=== PATIENT | female | born 1945 | race Caucasian/White ===

== ENCOUNTER 2023-06-27 11:19 | Emergency (ER) | payer MEDICARE, MEDICAID, SELFPAY ==
--- NOTE | ~2023-06-27 | XR_ITS ---
EXAMINATION: XR CHEST CLINICAL INFORMATION: Chest pain COMPARISON: None available. TECHNIQUE: 2 views of the chest were obtained. FINDINGS: Question increased left retrocardiac opacity versus artifact due to overlying soft tissues. No interstitial pulmonary edema or pneumothorax. Mild peribronchial thickening is noted. No pleural effusion. No significant abnormality is noted involving the heart, mediastinum, bony thorax or soft tissues. XR/XR chest 2V IMPRESSION: Question of increased left retrocardiac opacity versus artifact due to overlying soft tissues.
--- NOTE | 2023-06-27 11:21 | ECG_ITS ---
Test Reason : cp Blood Pressure : / mmHG Vent. Rate : 063 BPM Atrial Rate : 063 BPM P-R Int : 154 ms QRS Dur : 084 ms QT Int : 428 ms P-R-T Axes : 029 -11 062 degrees QTc Int : 437 ms Normal sinus rhythm with sinus arrhythmia Minimal voltage criteria for LVH, may be normal variant ( R in aVL ) Nonspecific T wave abnormality Abnormal ECG No previous ECGs available Referred By: Generic ED Physician Electronically Signed By:DIMAS COLLIER MD
[2023-06-27 11:57] VITALS: BP 113/34; PULSE 76; RESP 20; TEMP 35.9; O2SAT 100; BMI 38.4
--- NOTE | 2023-06-27 11:57 | ED_ITS ---
HPI - General Adult General Chief complaint: Chest Pain Stated complaint: Chest pain Time Seen by Provider: 06/27/23 18:02 Source: patient, RN notes reviewed and old records reviewed Mode of arrival: ambulatory Limitations: no limitations History of Present Illness HPI narrative: 78 year old female with PMH of fibromyalgia, OA, and PTSD presents for chest pain and pressure. She states the pain started this morning soon after breakfast while shopping and describes it as an elephant sitting on my chest. She states the pain lasted a few hours but has since subsided. She denies shortness of breath, diaphoresis, radiation to the arm, vomiting, or palpitations. She denies any pain or discomfort currently. She is requesting to be discharged home. Patient denies any history of cardiac disease Related Data Allergies Allergy/AdvReac Type Severity Reaction Status Date / Time pencillin Allergy Severe Anaphylaxis Uncoded 06/27/23 11:59 Review of Systems 2 Constitutional: Constitutional: Denies chills, Denies fever(s), Denies headache(s) and Denies lethargy Eyes: Eyes: Denies blurry vision ENT: Denies headache(s) Cardiovascular: Cardiovascular: Reports chest pain, Denies Epigastric Pain, Denies diaphoresis, Denies syncope, Denies leg edema, Denies lightheadedness, Denies radiating jaw, neck or arm pain, Denies palpitations and Denies dyspnea Respiratory: Respiratory: Denies cough and Denies dyspnea Gastrointestinal: Gastrointestinal: Denies abdominal pain, Denies nausea and Denies vomiting Musculoskeletal: Musculoskeletal: Reports arthralgias Integumentary/Breasts: Skin/Breast: Denies rash Neurologic: Denies syncope and Denies headache(s) Endocrine: Endocrine: Denies palpitations [facility] Social History Social History Advance Directives: No Advance Directives Information Provided: No Physical Exam ED Vital Signs: Vital Signs - 24 hr 06/27/23 11:57 06/27/23 19:05 Temperature 96.6 F L 98.2 F Pulse Rate 76 72 Respiratory Rate 20 12 Blood Pressure 113/34 L 137/63 Pulse Oximetry 100 96 Oxygen Delivery Method Room Air Room Air BMI result Body Mass Index 38.4 Const General: cooperative, healthy appearing and no acute distress Orientation/consciousness: patient oriented x3 Limitations: no limitations HENMT Head: Yes normocephalic and Yes atraumatic Eyes Conjunctivae: conjunctivae normal Sclerae: sclerae normal Corneas: corneas normal Pupils: Equal, round and reactive pupils present Chest Chest palpation & inspection: normal palpation of entire chest wall Resp Effort & Inspection: normal respiratory effort Auscultation: clear to auscultation bilaterally Cardio Rate: regular rate Rhythm: regular rhythm Neuro General: patient oriented x3 Cranial nerves: Yes Equal, round and reactive pupils present Extrem General: Yes normal to inspection and No edema Course Course Course Narrative: RME performed by Elham Medina PA-C. Patient is an 78 year old assigned female at presenting to the emergency department with chest pain. Labs and imaging ordered. Patient placed back in the waiting room pending room availability and results. Medications Administered Discontinued Medications Generic Name Dose Route Start Last Admin Trade Name Freq PRN Reason Stop Dose Admin Acetaminophen 975 mg 06/27/23 16:01 06/27/23 16:04 Acetaminophen 325 Mg Tablet PO 06/27/23 16:02 975 mg ONCE ONE Administration Medical Decision Making Medical Decision Making [facility] Narrative: 78-year-old female presents for evaluation of chest pain. She is currently asymptomatic but she had pain for several hours. She reports that her pain improved after ?burping and guarding. ? She reports a history of GERD but denies any history of coronary artery disease. The patient has a heart score of 3 at this time. Troponin was negative repeat troponin over 3 hours later was also negative. The patient's history is most consistent with GI etiology of her chest pain. Patient was encouraged to follow-up with her primary doctor. Patient's chest x-ray was reviewed and showed possible shadow versus artifact. Given that she denies any respiratory symptoms, cough, short of breath cough fevers, I advised her to get a repeat chest x-ray in a few weeks or return if she develops any upper respiratory symptoms. Differential Diagnosis Differential Diagnoses: The differential diagnosis associated with the presentation includes anxiety GERD costochondritis ACS muscle strain Admission/Observation Consideration of admission/observation: Escalation of care including admission/observation considered 78-year-old female presents for evaluation of crushing chest pain, however patient was ruled out for ACS and therefore did not require admission Lab Data [facility] Lab Attestation statement: I reviewed the patient's lab results. No leukocytosis or anemia, normal platelet count. No significant electrolyte abnormalities. The patient's BUN is elevated to 34. Unclear etiology this time. There is no evidence of anemia the patient denies any black or bloody stool. Troponin less than 2.7 x 2 06/27/23 12:56 06/27/23 12:57 Labs: Lab Results 06/27/23 06/27/23 06/27/23 Range/Units 12:56 12:57 16:14 WBC 8.0 (4.8-10.8) X10*3/uL RBC 4.62 (4.20-5.50) X10*6/uL Hgb 14.5 (12.0-16.0) g/dl Hct 44.8 (37.0-47.0) % MCV 97.0 (80.0-98.0) fL MCH 31.4 (27.0-33.0) pg MCHC 32.4 (31.0-35.0) g/dl RDW 13.1 (11.0-16.0) % Plt Count 207 (160-400) X10*3/uL MPV 10.2 (9.4-12.3) fL Immature Gran % (Auto) 0.2 (0.0-0.4) % Neut % (Auto) 76.8 H (45-73) % Lymph % (Auto) 14.7 L (20-40) % [place] % (Auto) 6.6 (2-11) % Eos % (Auto) 1.6 (0-4) % Baso % (Auto) 0.1 (0-2) % Lymph # (Auto) 1.2 (1.2-4.9) X10*3/uL [place] # (Auto) 0.5 (0.1-1.2) X10*3/uL Eos # (Auto) 0.1 (0.0-0.4) X10*3/uL Baso # (Auto) 0.0 (0.0-0.2) X10*3/uL Abs Immat Gran (auto) 0.02 (0.00-0.03) X10*3/uL Absolute Neuts (auto) 6.2 (2.0-8.3) x10*3/uL Absolute Nucleated RBC 0.000 (0.0-0.012) X10*3/uL Nucleated RBC % (auto) 0.0 (0.0-0.2) /100WBC PT 11.3 (11.1-13.3) SEC INR 0.9 (0.9-1.1) APTT 28.8 (26.0-36.4) SEC Sodium 141 (135-145) mmol/L Potassium 4.4 (3.3-5.1) mmol/L Chloride 106 (96-108) mmol/L Carbon Dioxide 26 (22-29) mmol/L Anion Gap 13 (12-20) BUN 34 H (9-16) mg/dL Creatinine 0.72 (0.5-1.4) mg/dL Estim Creat Clear Calc 67.0 Estimated GFR > 60 Random Glucose 112 (60-115) mg/dL Calcium 9.7 (8.4-10.2) mg/dL Magnesium 2.4 (1.6-2.6) mg/dL Total Bilirubin 0.5 (0.0-1.0) mg/dL AST 246 H (5-31) U/L ALT 104 H (0-31) U/L Alkaline Phosphatase 72 (39-117) U/L Troponin I High Sens < 2.7 < 2.7 (<3.5-17.0) ng/L Total Protein 7.5 (6.5-8.0) g/dL Albumin 4.1 (3.5-5.0) g/dL Lipase 19 (8-78) U/L Influenza Type A (PCR) NEGATIVE (Negative) Influenza Type B (PCR) NEGATIVE (Negative) RSV RNA Qual (PCR) NEGATIVE (Negative) SARS-CoV-2 RNA (RT-PCR) NEGATIVE (Negative) Independent Interpretation I performed an independent interpretation of an: EKG (Normal sinus rhythm with sinus arrhythmia with rate of 63 beats per minute. No acute ischemic changes.) and Plain X-Ray (No obvious infiltrates or effusions. Large gas bubble within the stomach) Interpretation: Question of increased left retrocardiac opacity versus artifact due to overlying soft tissues. Discharge Plan Discharge Clinical Impression: Chest pain Patient Disposition: Home, Self-Care Instructions: Chest Pain (ED) Additional Instructions: Your workup in the emergency department today was reassuring. This includes your blood work, EKG and chest x-ray. There was a shadow seen on the x-ray concerning for ?artifact verses early pneumonia. ? I recommend you have a repeat chest x-ray in the next few weeks, discuss this with your primary doctor However if you develop fever, cough, shortness of breath over the next few days, return to the ER for repeat imaging sooner.
[2023-06-27 13:05] LABS: MANUAL DIFF FLAG NO
[2023-06-27 13:08] LABS: Basophils Percent Auto 0.1 % (0-2); Eosinophils Absolute Auto 0.1 X10*3/uL (0.0-0.4); Eosinophils Percent Auto 1.6 % (0-4); Hematocrit 44.8 % (37.0-47.0); Hemoglobin 14.5 g/dl (12.0-16.0); Imm Gran Abs Auto 0.02 X10*3/uL (0.00-0.03); Imm Gran Pct Auto 0.2 % (0.0-0.4); Lymphocytes Absolute Auto 1.2 X10*3/uL (1.2-4.9); Lymphocytes Percent Auto 14.7 % (20-40); Mean Corpuscular HGB Conc 32.4 g/dl (31.0-35.0); Mean Corpuscular Hemoglobin 31.4 pg (27.0-33.0); Mean Platelet Volume 10.2 fL (9.4-12.3); Monocytes Absolute Auto 0.5 X10*3/uL (0.1-1.2); Monocytes Percent Auto 6.6 % (2-11); Neutrophils Absolute Auto 6.2 x10*3/uL (2.0-8.3); Neutrophils Percent Auto 76.8 % (45-73); Platelet Count 207 X10*3/uL (160-400); Red Blood Count 4.62 X10*6/uL (4.20-5.50); Red Cell Distribution Width 13.1 % (11.0-16.0)
[2023-06-27 13:12] LABS: INTERNATIONAL NORM RATIO 0.9 (0.9-1.1); Prothrombin Time 11.3 SEC (11.1-13.3)
[2023-06-27 13:15] LABS: Partial Thromboplastin Time 28.8 SEC (26.0-36.4)
[2023-06-27 13:24] LABS: Alanine Aminotransferase 104 U/L (0-31); Albumin Level 4.1 g/dL (3.5-5.0); Alkaline Phosphatase 72 U/L (39-117); Anion Gap 13 (12-20); Aspartate Amino Transferase 246 U/L (5-31); Bilirubin Total 0.5 mg/dL (0.0-1.0); Blood Urea Nitrogen 34 mg/dL (9-16); Calcium 9.7 mg/dL (8.4-10.2); Carbon Dioxide 26 mmol/L (22-29); Chloride 106 mmol/L (96-108); Estimated Glomerular Filt Rate > 60; Glucose Random 112 mg/dL (60-115); Lipase 19 U/L (8-78); Magnesium 2.4 mg/dL (1.6-2.6); Potassium 4.4 mmol/L (3.3-5.1); Sodium 141 mmol/L (135-145); Total Protein 7.5 g/dL (6.5-8.0)
[2023-06-27 13:31] LABS: Troponin-I High Sensitivity < 2.7 ng/L (<3.5-17.0)
[2023-06-27 13:44] LABS: Influenza A PCR NEGATIVE (Negative); Influenza B PCR NEGATIVE (Negative); Resp Syncy Virus RNA Qual PCR NEGATIVE (Negative); SARS COV2 PCR INHOUSE NEGATIVE (Negative)
[2023-06-27] MEDS: Acetaminophen 325 MG TABLET 975 MG PO (16:04)
[2023-06-27 16:46] LABS: Troponin-I High Sensitivity < 2.7 ng/L (<3.5-17.0)
[2023-06-27 19:05] VITALS: BP 137/63; PULSE 71; PULSE 72; RESP 12; TEMP 36.8; O2SAT 96
== END 2023-06-27 19:17 | disposition home or self-care (01) ==
PROVIDERS: Physician Assistant Medical; Emergency Provider Internal Medicine
DX: R07.9 Chest pain, unspecified (principal); Z20.822 Contact with and (suspected) exposure to COVID-19; Z20.828 Contact with and (suspected) exposure to other viral communicable diseases
CPT/HCPCS: 0241U; 36415; 71046; 80053; 83690; 83735; 84484; 85025; 85610; 85730; 93005; 99283; 99284